=== PATIENT | female | born 1985 | race Caucasian/White ===

== ENCOUNTER → 2016-10-24 | Outpatient (CLI) | payer OTHER ==
[~2016-10-24] VITALS: Ht 167.6 cm; Wt 99.3 kg
[~2016-10-24] MED LIST: ABILIFY10 MG PO; AMITRIPTYLINE H25 M2 PO; AMITRIPTYLINE H50 M3 PO; AMITRIPTYLINE H75 M1 PO; AMITRIPTYLINE100 MG PO; BACLOFEN 10MG T10 MG PO; CATAPRES-TTS 10.1 M2 TD; CATAPRES0.1 MG PO; CATAPRES0.2 M1 PO; CELEBREX 200 M200 M1 PO; CELEBREX 200 M200 MG PO; CELEXA20 MG PO; CYMBALTA60 MG PO; HYDROCODONE-APA1 TA1 PO; IBUPROFEN 800800 M1 PO; LOESTRIN1 EACH PO; LOW-OGESTREL1 EACH PO; LYRICA 50 MG50 MG PO; LYRICA150 MG PO; METFORMIN HCL500 MG PO; MOBIC15 MG PO; NEURONTIN 300300 M1 PO; PERCOCET 10-321 EACH PO; PERCOCET 7.5-31 EACH PO; XANAX1 MG PO; ZANAFLEX4 MG PO; ZOFRAN4 MG PO
--- NOTE | ~2016-10-24 | HPC ---
[facility] [place] [address] PAIN MANAGEMENT CONSULTATION Name: ADRIANNA COTTRELL Room #: REG BOWENJeanine Sauer#: [id number] Admission: 10/24/16 Attend Phys: Tung Goins MD Discharge: Date of : 85 Report #: [id number] THIS REPORT FOR: //name// CC: DERECK Goins She was seen on 10/24/[address] Alirio Goins. FOLLOWUP COMPLAINT: The "burniness" up in the right thigh. FOLLOWUP HISTORY: The patient is a 31-year-old female who has been seen in the pain clinic because of chronic pain involving the right lower extremity. She has pain consistent with reflex sympathetic dystrophy/causalgia. She underwent a lumbar sympathetic block at the last visit. She feels that there was some benefit from this procedure. She does note that she continues to have pain and discomfort in the right thigh area from the knee up. Her right foot continues to be purple and much colder than the left side. Light touch can be uncomfortable. Painful touch is elevated in intensity. She walks with use of a crutches. She was able to get Lyrica as well as Celebrex. Both of these medications she has found benefit from. She was out of them for a while because of lack of insurance coverage. She is quite happy with these medications are now available again. She does feel depressed because of problem. She does lay around more than she did before onset of this problem. She does feel some increased pain and discomfort in right hip area as well as some discomfort in the right groin area. PHYSICAL EXAMINATION: VITAL SIGNS: Blood pressure 150/90, pulse 104, respiratory rate 20, room air saturation 97%. Right foot temperature is 73.3. Left foot temperature is 80.4. EXTREMITIES: Right foot is blue, cold and somewhat clammy. The patient walks with use of her crutches without placing much weight on the affected limb. IMPRESSION: 1. Chronic regional pain syndrome involving the right foot, awaiting right ankle surgery at 2. The patient's insurance does not becomes active for 90 days. 3. Recommend the patient go to physical therapy, consider water aerobics to help increase her mobility as well as increase her activity with that every day world. We would like to thank you for letting us participate in her care. A script for Elavil 100 mg 1 p.o. at bedtime, Lyrica 150 mg 1 p.o. t.i.d., Percocet 10/325 q. 4 hours, Zofran 4 mg p.r.n. nausea. The patient states that her pain is still problematic and sometimes makes her nauseated, [place] [address] PAIN MANAGEMENT CONSULTATION Name: ADRIANNA COTTRELL Room #: REG CLJeanine Sauer#: [id number] Admission: 10/24/16 Attend Phys: Tung Goins MD Discharge: Date of : 85 Report #: [id number] to eat. We would like to thank you for letting us participate in her care. We hope she continues to improve. By: [id number] Tung Goins MD /nt
[2016-10-24 10:02] VITALS: BP 150/90
== END | disposition home or self-care (01) ==
LOC: PAIN 07:02
DX: G90.521 Complex regional pain syndrome I of right lower limb (principal); F17.200 Nicotine dependence, unspecified, uncomplicated

== ENCOUNTER → 2016-11-23 | Outpatient (CLI) | payer OTHER ==
[~2016-11-23] VITALS: Ht 167.6 cm; Wt 96.6 kg
--- NOTE | ~2016-11-23 | HPC ---
[facility] [place] [address] PAIN MANAGEMENT CONSULTATION Name: ADRIANNA COTTRELL Room #: REG KYLE Sauer#: [id number] Admission: 11/23/16 Attend Phys: Tung Goins MD Discharge: Date of : 85 Report #: [id number] THIS REPORT FOR: //name// CC: DERECK Goins DATE OF SERVICE: 11/23/2016 FOLLOWUP COMPLAINT: The Lyrica is helpful and I am glad I was able to get it again. FOLLOWUP HISTORY: The patient is a 31-year-old female who has been seen in the pain clinic because of chronic pain involving her right foot. She suffers from reflux sympathetic dystrophy/chronic regional pain syndrome. She finds that Lyrica continues to be helpful. She continues to have pain and discomfort in her foot, which is quite problematic. It continues to turn colors, remain cold, is hypersensitive to light touch, increased pain from noxious stimuli. PHYSICAL EXAMINATION: The patient is walking with a pair of crutches. She has a small boot like item to help stabilize her ankle. Temperature of her foot is 70.1 degrees on her great toe. It is blue and mottled to around the toes. It did pink up somewhat after she placed her shoe back on, but still remains very cold. She sits leaned on her left buttocks with the right leg held in an extended position. Walks without placing much weight on the ankle. IMPRESSION AND PLAN: 1. Chronic regional pain syndrome involving the right foot. The patient's 's insurance will not be in effect for a month so. She will then undergo evaluation and possible surgery at . 2. The patient has not been able to go to physical therapy yet. She is awaiting confirmation. She also would like to get a swimming pool where she could continue with aerobic water exercises after she has been taught. We will continue with her current medications of Elavil 100 mg at bedtime, Lyrica 150 mg p.o. t.i.d., Percocet 10 mg q. 4 hours p.r.n. pain, Zanaflex 4 mg p.r.n. nausea. The patient does feel some anxiety. She feels that she does develop panic attacks. She is becoming more homebound and has greater anxiety when going out into public. She states that she continues to try to be active following her children in there athletic endeavors. We would like to thank you for letting us participate in her care. We hope she continues to improve. By: [id number] Tung Goins MD /eran
[2016-11-23 10:26] VITALS: BP 149/89
== END | disposition home or self-care (01) ==
LOC: PAIN 06:31
DX: G90.521 Complex regional pain syndrome I of right lower limb (principal); F17.200 Nicotine dependence, unspecified, uncomplicated

== ENCOUNTER → 2016-12-21 | Outpatient (CLI) | payer OTHER ==
[~2016-12-21] VITALS: Ht 167.6 cm; Wt 97.3 kg
[~2016-12-21] MED LIST changes: +PHENTERMINE H37.5 M1 PO
--- NOTE | ~2016-12-21 | HPC ---
[facility] [place] [address] PAIN MANAGEMENT CONSULTATION Name: ADRIANNA COTTRELL Room #: REG BOWENJeanine Sauer#: [id number] Admission: 12/21/16 Attend Phys: Tung Goins MD Discharge: Date of : 85 Report #: [id number] THIS REPORT FOR: //name// CC: DERECK Goins DATE OF SERVICE: 12/21/2016 FOLLOWUP COMPLAINT: "I've had some increased swelling in my legs." FOLLOWUP HISTORY: The patient is a 31-year-old female who has been followed in the pain clinic because of chronic pain involving her right foot. She suffers from reflex sympathetic dystrophy/chronic regional pain syndrome involving the right foot. She notes that it continues to be problematic. She is awaiting surgery. Her 's insurance will come into effect after 90 days of employment. She is planning on having her ankle fused at . It continues to turn colors, is very sensitive to light touch, quite sensitive to noxious stimuli, remains cold and the patient continues to have difficulty ambulating on it. She walks with use of crutches. PHYSICAL EXAMINATION: The patient has crutches. She continues to use a boot-like stabilizer on her ankle. Temperature is 71.4 degrees on her great toe. It is blue and somewhat mottled around her foot and focal parts on her ankle. There are no breakdown areas. IMPRESSION: Chronic regional pain syndrome involving the right foot. The patient's 's insurance goes into effect after 90 days of employment. She is scheduling surgery at when it is possible. The patient has noted some increased weight gain. She has used phentermine 37.5 mg tablets and has noted a number of pounds loss as a result of its use. We have explained to the patient that if she considers surgery, the use of phentermine must be stopped about 2 weeks prior to surgery, given the problems she could have with anesthesia. She still has a script for therapy to note its efficacy. We would like to thank you for letting us participate in her care. We hope she continues to improve. A script for her medications, Zofran 4 mg 1 p.o. q.8 hours, quantity 15; tizanidine 4 mg 1 p.o. t.i.d., quantity 90; baclofen 10 mg 1 p.o. t.i.d., quantity 180; Celebrex 200 mg 1 p.o. daily, quantity 30; Elavil 100 mg 1 p.o. at bedtime; Percocet 10/325 one q.4-6 h, quantity 150; Lyrica 150 mg 1 p.o. t.i.d., quantity 180 have been written. The patient will call us if she has any problems with her medications. [address] [address] PAIN MANAGEMENT CONSULTATION Name: ADRIANNA COTTRELL [facility] #[facility] [id number] Admission: 12/21/16 Attend Phys: Tung Goins MD Discharge: Date of : 85 Report #: [id number] We would like to thank you for letting us participate in her care. We hope she continues to improve. By: [id number] Tugn Goins MD /nt
[2016-12-21 10:16] VITALS: BP 127/83
== END ==
LOC: PAIN 05:44
DX: G89.4 Chronic pain syndrome (principal); F17.210 Nicotine dependence, cigarettes, uncomplicated; I10 Essential (primary) hypertension

== ENCOUNTER → 2017-01-18 | Outpatient (CLI) | payer OTHER ==
[~2017-01-18] VITALS: Ht 167.6 cm; Wt 97.7 kg
--- NOTE | ~2017-01-18 | HPC ---
[facility] [place] [address] PAIN MANAGEMENT CONSULTATION Name: ADRIANNA COTTRELL Room #: REG KYLE Cristiane#: [id number] Admission: 01/18/17 Attend Phys: Tung Goins MD Discharge: Date of : 85 Report #: [id number] THIS REPORT FOR: //name// CC: DERECK Goins DATE OF SERVICE: 01/18/2017 FOLLOWUP COMPLAINT: It is still the same and I am going to have surgery in about April. HISTORY OF PRESENT ILLNESS: The patient is a 31-year-old female who has been treated in the pain clinic because of chronic pain involving her right foot. She suffers from reflex sympathetic dystrophy/chronic regional pain syndrome involving her right foot. She continues to find it problematic. There is continuous swelling. She notes that there is decreased hair growth on the affected side versus the unaffected side. She has noticed that it has become more sensitive. The hypersensitivity area has reached from below her right knee to above the right knee. She states that she continues to try to exercise her knee. Pain is problematic and limits her ability to engage in meaningful exercise and move her right ankle in a significant range of motion. She does wear a brace on that side. PHYSICAL EXAMINATION: Blood pressure 134/84, pulse 106, respiratory rate 18, room air saturation 99%. Height 5 feet 6 inches, weight 167 pounds, BMI is 34. The patient's right foot is dusky. There is no swelling, but the foot is cold and dry to touch. Temperature at the great toe is 71.1. It is significantly colder than the contralateral side. The patient states it is difficult for her to move her foot. She complains of pain and discomfort with light touch in the mid portion of her calf as well as discomfort with pain to light touch to the level of her right knee cap. IMPRESSION AND PLAN: Chronic regional pain syndrome involving the right foot. The patient is scheduled to have surgery at involving the right foot in about April. She feels that her medications are helpful. Pain still remains quite problematic and rates it as a 7/10. Prescription for Zofran, tizanidine, baclofen, Elavil, Celebrex, Lyrica, and Percocet 10 one p.o. 5 tablets per day has been written. The patient will call us if she has any problems with her medications. [address] [address] PAIN MANAGEMENT CONSULTATION Name: ADRIANNA COTTRELL Room #: REG KYLE Sauer#: [id number] Admission: 01/18/17 Attend Phys: Tung Goins MD Discharge: Date of : 85 Report #: [id number] We would like to thank you for letting us participate in her care. We hope she continues to improve. By: [id number] Tung Goins MD /nt
[2017-01-18 10:12] VITALS: BP 134/84
== END ==
LOC: PAIN 06:57
DX: G90.521 Complex regional pain syndrome I of right lower limb (principal); F17.200 Nicotine dependence, unspecified, uncomplicated

== ENCOUNTER → 2017-02-15 | Outpatient (CLI) | payer OTHER ==
[~2017-02-15] VITALS: Ht 167.6 cm; Wt 96.6 kg
[2017-02-15 09:35] VITALS: BP 130/80
== END | disposition home or self-care (01) ==
LOC: PAIN 06:51
DX: G89.4 Chronic pain syndrome (principal); F17.200 Nicotine dependence, unspecified, uncomplicated

== ENCOUNTER → 2017-03-15 | Outpatient (CLI) | payer BC, OTHER ==
[~2017-03-15] VITALS: Ht 167.6 cm; Wt 97.2 kg
--- NOTE | ~2017-03-15 | HPC ---
[facility] [place] [address] PAIN MANAGEMENT CONSULTATION Name: ADRIANNA COTTRELL Room #: REG BOWENJeanine Sauer#: [id number] Admission: 03/15/17 Attend Phys: Tung Goins MD Discharge: Date of : 85 Report #: [id number] THIS REPORT FOR: //name// CC: Dr. Nirav Goins DATE OF SERVICE: 03/15/2017 FOLLOWUP COMPLAINT. "I am going to have my surgery in about 2 weeks." FOLLOWUP HISTORY: The patient is a 32-year-old female who is unfortunately suffered from chronic regional pain syndrome involving the right foot. She continues to have pain and discomfort, which is quite problematic. She has become quite immobile. She and her mother note significant swelling involving her right leg. She continues to wear a brace. She is looking forward to undergoing surgery and being able to continue/get on with her life. She has remained pretty much sedentary over the last month. PHYSICAL EXAMINATION: The patient continues to walk on crutches. Temperature of her foot is 74 degrees of the right great toe. There is modeling of the foot. Areas of the arch of her foot are warm. The toe is quite cold, bluish, and discolored. IMPRESSION: Chronic regional pain syndrome involving the right foot. RECOMMENDATIONS: The patient will continue with her current medical regimen. She will go to at which time she will have her surgery. We encouraged her to see whether a regional anesthesia would be provided in conjunction with a general anesthetic to help lessen the chance worsening of her chronic regional pain syndrome. A script for her medications have been rewritten. We would like to thank you for letting us participate in her care. We hope she continues to improve and does well after the surgery. By: [id number] Tung Goins MD /nt
[2017-03-15 10:31] VITALS: BP 121/84
== END | disposition home or self-care (01) ==
LOC: PAIN 07:18
DX: G90.521 Complex regional pain syndrome I of right lower limb (principal); F17.200 Nicotine dependence, unspecified, uncomplicated

== ENCOUNTER → 2017-04-03 | Outpatient (CLI) | payer BC, OTHER ==
[~2017-04-03] VITALS: Ht 167.6 cm; Wt 99.3 kg
[~2017-04-03] MED LIST changes: +METHADONE HCL 110 M1 PO; +TRILEPTAL150 MG PO
--- NOTE | ~2017-04-03 | HPC ---
[facility] [address] [address] PAIN MANAGEMENT CONSULTATION Name: ADRIANNA COTTRELL Room #: REG KYLE Dasia.#: [id number] Admission: 04/03/17 Attend Phys: Tung Goins MD Discharge: Date of : 85 Report #: [id number] THIS REPORT FOR: //name// CC: Dr. Nirav Hdz MD DATE OF SERVICE: 04/03/2017 FOLLOWUP HISTORY: "The doctor at says he cannot do anything for me and if I would have come to him earlier, he would have amputated my leg." FOLLOWUP HISTORY: The patient is a 32-year-old female who has been referred to the Pain Clinic. She has a history of right ankle pain. She had been having pain since 1997. She had been experiencing burning, shooting, aching, crushing, pulling, gnawing, pounding and sharp, tender discomfort. She is rating her pain about 8-9. She has undergone right ligamentum repair of her ankle in 1997. She also had a repair in 1998. A tendon repair was performed in 05/2015. She has been seen in the Pain Clinic and treated for complex regional pain syndrome. She underwent a lumbar sympathetic block and noted some slight improvement for a short amount of time. At this point, her pain is becoming more problematic. She is unable to engage in any significant activity of daily living. She stays in the bedtime most of the time. She has difficulty walking and is unable to walk on her right foot/ankle. She has been using crutches. We have tried a number of medical regimens using opioid medications, anti-seizure medications, tricyclic antidepressant medications, muscle spasms medications with some small amount of benefit. She was scheduled to see a surgeon at . At their meeting he indicating that her RSD symptoms were problematic. They have progressed past the point that he feels that any surgery that he could provide would be of any significant benefit. He had considered amputation of her foot. She is having pain, which continues to migrate up her leg now to the level slightly above her knee. PHYSICAL EXAMINATION: Blood pressure 115/84, pulse 104, respiratory rate 16, room air saturation 98%. Height 5 feet 6 inches, weight 219 pounds. She rates her pain as a 9/10. The foot is modelled, temperature of the right foot is 71 degrees, it is cold and dry, hair pattern is ____ with the contralateral side. She says there has been some changes in the nail bed. She has a wrap on her right foot. She has shoes which are cut out on the top because of the pain and discomfort. Hypersensitivity, allodynia involving the right foot. IMPRESSION: 1. Chronic regional pain syndrome involving the right foot, treated as [facility] [address] [place] [address] PAIN MANAGEMENT CONSULTATION Name: ADRIANNA COTTRELL Room #: REG CLJeanine Sauer#: [id number] Admission: 04/03/17 Attend Phys: Tung Goins MD Discharge: Date of : 85 Report #: [id number] described above. 2. Polycystic ovarian disease. 3. History of tobacco use. RECOMMENDATION: The patient has undergone appropriate treatment with medications and procedures for chronic regional pain syndrome involving her right foot. We have explained that an option which has been helpful for folks with chronic regional pain syndrome, has been use of a spinal cord stimulation. We have explained that patient would need to undergo the preliminary steps for placement of a stimulator. This would include psychological evaluation. The patient will return to the Pain Clinic for evaluation. She has been given information regarding the dorsal column/spinal cord stimulation procedure. We would like to thank you for letting us participate in her care. We hope she continues to improve. By: [id number] Tung Goins MD /
[2017-04-03 10:11] VITALS: BP 115/84
== END | disposition home or self-care (01) ==
LOC: PAIN 07:23
DX: G90.521 Complex regional pain syndrome I of right lower limb (principal); E28.2 Polycystic ovarian syndrome; F17.200 Nicotine dependence, unspecified, uncomplicated

== ENCOUNTER → 2017-04-12 | Outpatient (CLI) | payer BC, OTHER ==
[~2017-04-12] VITALS: Ht 167.6 cm; Wt 99.2 kg
--- NOTE | ~2017-04-12 | HPC ---
[facility] [place] [address] PAIN MANAGEMENT CONSULTATION Name: ADRIANNA COTTRELL Room #: REG BOWENJeanine Sauer#: [id number] Admission: 04/12/17 Attend Phys: Tung Goins MD Discharge: Date of : 85 Report #: [id number] THIS REPORT FOR: //name// CC: DERECK Goins DATE OF SERVICE: 04/12/2017 FOLLOWUP COMPLAINT: "I think the methadone was helpful, but I developed a rash." FOLLOWUP HISTORY: The patient is a 32-year-old female who has been followed in the pain clinic because of chronic regional pain syndrome involving the right foot. She was provided methadone at the last visit. She spoke with Dr. Juanjose Martínez regarding possible dorsal column stimulation. She noticed after a day or so that she was developing a rash. This was noted on her forearm, neck and other parts of her body. She assumes that this was secondary to use of the methadone. That is the only new medication, which she has taken. PHYSICAL EXAMINATION: Blood pressure 125/87, pulse 120, respiratory rate 20, room air O2 saturation is 100%. Height 5 feet 6 inches, weight 218 pounds, BMI is 35. The patient has a mottled look to her right foot, which continues to be hypersensitive to light touch, notes some ____ changes. Has a bluish color. Continues to have hypersensitivity to touch in the right leg as well as increasing discomfort up in the knee area. She notes some increased swelling on the dorsum of her foot. She denies any trauma to this area. Palpation of this area indicates some swelling. She denies any trauma which might have caused the fracture. IMPRESSION: 1. Chronic regional pain syndrome involving the right foot. 2. The patient has ____ the information regarding a dorsal column stimulator. RECOMMENDATIONS: We discussed treatment options with the patient. She has had some reactions with Medrol Dosepak in the past. She feels that things are improving somewhat and less problematic than yesterday. She did experience some sweating with use of the methadone. We will try Trileptal. She will call us if she has any problems with the medications. We would like to thank you for letting us to participate in her care. We hope she continues to improve. By: [id number] Tung Goins MD /
[2017-04-12 10:08] VITALS: BP 125/87
== END ==
LOC: PAIN 06:47
DX: M79.671 Pain in right foot (principal)

== ENCOUNTER → 2017-05-01 | Outpatient (CLI) | payer BC, OTHER ==
[~2017-05-01] VITALS: Ht 167.6 cm; Wt 99.6 kg
--- NOTE | ~2017-05-01 | HPC ---
[facility] [place] [address] PAIN MANAGEMENT CONSULTATION Name: ADRIANNA COTTRELL Room #: REG KYLE Cristiane#: [id number] Admission: 05/01/17 Attend Phys: Tung Goins MD Discharge: Date of : 85 Report #: [id number] THIS REPORT FOR: //name// CC: DERECK Goins DATE OF SERVICE: 05/01/2017 FOLLOWUP COMPLAINT: Continued pain in the right leg with increasing pain in the right leg. FOLLOWUP HISTORY: The patient is a 32-year-old female who has been followed in the Pain Clinic because of chronic pain. She suffers from chronic regional pain syndrome. She notes that her pain continues to be problematic. She feels that her pain level has continued to escalate. She rates it as an 8/10. Light touch is very painful. Noxious stimuli is significantly more painful than one would expect. She continues to note changes of color in her foot. Her foot is cold. She is dreading the onset of winter knowing that her pain level will probably escalate. Pain is worsened by sitting, standing and walking. She still feels her foot is somewhat numb. PHYSICAL EXAMINATION: VITAL SIGNS: Blood pressure 140/91, heart rate 118, respiratory rate 16, room air saturation is 99%. Height 5 feet 6 inches, weight 219 pounds, BMI is 35. MUSCULOSKELETAL: The patient continues to have pain and discomfort with allodynia and hyperesthesia of the right lower foot. Temperature is 74 degrees Fahrenheit. There is a bluish tinge and color to the foot. It feels very cold to touch as well. The patient pulls away from light touch in her foot on the dorsum, ankle as well as now she states that the pain has increased and is more uncomfortable at about mid thigh. She continues to research and consider the possibility of a dorsal column stimulator to help with her pain condition. She finds that her medications are still ineffective. She noted that the methadone was helpful, but had the side effects. She would like to increase her Percocet to six tablets per day. IMPRESSION: 1. Chronic regional pain syndrome involving the right foot with increasing discomfort. 2. Consideration has been given for possibility of a dorsal column stimulator. RECOMMENDATIONS: We will increase the patient's Percocet to 10 mg 1 p.o. t.i.d. We have explained the opioid medications have a limited role in pain control. Continuing to escalate the dose probably would not be as efficacious. She will follow up in the future with her decision regarding the dorsal column stimulator. We would like to thank you for letting us participate in her care. [address] [address] PAIN MANAGEMENT CONSULTATION Name: ADRIANNA COTTRELL Room #: REG KYLE Sauer#: [id number] Admission: 05/01/17 Attend Phys: Tung Goins MD Discharge: Date of : 85 Report #: [id number] We hope she continues to improve. The patient will try use of a ____ to desensitize her right foot. We have explained the use of a ____ to cover the affected area and concentrate on moving her left foot. It is thought that this can help some regain motion in the affected limb. By: [id number] Tung Goins MD /EDMOND
[2017-05-01 10:14] VITALS: BP 140/91
== END | disposition home or self-care (01) ==
LOC: PAIN 07:18
DX: G89.4 Chronic pain syndrome (principal); Z68.35 Body mass index [BMI] 35.0-35.9, adult; F17.200 Nicotine dependence, unspecified, uncomplicated

== ENCOUNTER → 2017-07-24 | Outpatient (CLI) | payer BC, OTHER ==
[~2017-07-24] VITALS: Ht 167.6 cm; Wt 101.3 kg
[~2017-07-24] MED LIST changes: +AMITRIPTYLINE150 MG PO
--- NOTE | ~2017-07-24 | HPC ---
[facility] [place] [address] PAIN MANAGEMENT CONSULTATION Name: ADRIANNA COTTRELL Room #: REG KYLE Cristiane#: [id number] Admission: 07/24/17 Attend Phys: Tung Goins MD Discharge: Date of : 85 Report #: [id number] THIS REPORT FOR: //name// CC: DERECK Queen DATE OF SERVICE: 07/24/2017 FOLLOWUP COMPLAINT: "The pain continues to get worse and it continued to creep up my leg. I am in bed most of the time." FOLLOWUP HISTORY: The patient is a 32-year-old female who has been followed in the pain clinic. As you recall, she has significant pain, which has been quite problematic. It involves her right ankle. She continues to have chronic regional pain syndrome, which continues to worsen. She is experiencing pain that is radiating up into her leg. It initially started in the ankle and has progressed to about the right buttock. She notes that it is hypersensitive to light touch. There is allodynia and hyperesthesia in this area. Finds her foot continues to be cold, mottled, and painful. Tries not to wear a shoe or put pressure on this because of that pain. Walks with crutches. She has continued to take her medications, but has not found any that have been able to control her pain to a reasonable degree. PHYSICAL EXAMINATION: The patient is alert. She is sitting in the chair with her right foot extended and leaning somewhat back in the chair. There is a bluish color in the toe area. She states it is uncomfortable to move her ankle and notes some discomfort with movement of her ankle. She complains of hyperesthesia and allodynia to the level of her right thigh, feels like it is going up into the buttocks area. IMPRESSION: 1. Chronic regional pain syndrome involving the right foot with progression of pain and discomfort into the right leg and into the buttocks area. 2. The patient is unable to work secondary to the severity of the pain, which she is experiencing and her inability to place any appreciable weight on her foot. 3. 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 RECOMMENDATIONS: We discussed treatment options with the patient. At this juncture, a significant number of medications have been tried and maxed out. Other medications have been problematic. Today, she has returned to the pain clinic for a repeat lumbar sympathetic block. She and her sister are present. She elects to proceed. The right foot temperature prior to the procedure is 63.9. [address] [address] PAIN MANAGEMENT CONSULTATION Name: ADRIANNA COTTRELL Room #: REG [facility]#: [id number] Admission: 07/24/17 Attend Phys: Tung Goins MD Discharge: Date of : 85 Report #: [id number] PROCEDURE NOTE: The patient was helped to the table. After appropriate placement using a 20-gauge Chiba needle, a skin wheal was placed. The 20-gauge needle was then advanced into the anterior border of the L1 vertebral body. It was then advanced in the anterior portion of the vertebral body. After appropriate placement, 3 mL contrast media was injected. Appropriate placement was noted. A total of 20 mg of 0.25% bupivacaine was injected. The patient's fluoroscopy time was 33 seconds. We noted that the temperature of her foot went from 63.9 to 71 degrees to 72 degrees. It later moved to 73.5 degrees. The patient said she could not appreciate any significant change in her pain. Her foot did appear somewhat more pink. She remained in the pain clinic for an appropriate amount of time. She will follow up in a university setting near her. She states that she lives close to [place]. We would recommend that she seek treatment in the [facility]. We had discussed the possibility of a dorsal column stimulator. She is still thinking over that option. We would like to thank you for letting us participate in her care. We hope she continues to improve. By: [id number] Tung Goins MD /EDMOND
[2017-07-24 08:39] VITALS: BP 143/74
== END | disposition home or self-care (01) ==
LOC: PAIN 06:50
DX: G90.521 Complex regional pain syndrome I of right lower limb (principal); F32.89 Other specified depressive episodes; F17.200 Nicotine dependence, unspecified, uncomplicated; Z91.040 Latex allergy status; Z88.8 Allergy status to other drugs, medicaments and biological substances; Z79.891 Long term (current) use of opiate analgesic; Z79.899 Other long term (current) drug therapy

== ENCOUNTER → 2017-09-11 | Outpatient (CLI) | payer BC, OTHER ==
[~2017-09-11] VITALS: Ht 167.6 cm; Wt 101.2 kg
[~2017-09-11] MED LIST changes: +ABILIFY 2 MG2 M1 PO; +LYRICA 75 MG CA75 MG PO; +OXYCODONE HCL10 MG PO; +OXYCODONE-ACET1 EAC2 PO
--- NOTE | ~2017-09-11 | HPC ---
[facility] [place] [address] PAIN MANAGEMENT CONSULTATION Name: ADRIANNA COTTRELL Room #: REG KYLE Sauer#: [id number] Admission: 09/11/17 Attend Phys: Tung Goins MD Discharge: Date of : 85 Report #: [id number] THIS REPORT FOR: //name// CC: DERECK Goins DATE OF SERVICE: 09/11/2017 FOLLOWUP COMPLAINT: "I am thinking about moving closer to home so that they can be of help." FOLLOWUP HISTORY: The patient is a 32-year-old female, who has been followed in the pain clinic because of chronic pain involving the right lower extremity. She continues to have pain and discomfort, which is problematic. She has noticed a worsening of her pain. It feels like it has climbed up and progressed from the right side to the left side. She feels that her medications are still helpful. She has decided to move closer to her family, which is about [address], she is able to get more help and they can provide more support. She continues to notice allodynia and hyperesthesia. Walks with an antalgic gait and with a crutch. She has difficulty wearing her shoe. Notes some worsening of pain and it seems to be crossing over into the left side. At this juncture, she is still considering a dorsal column stimulator. At this juncture, she does not feel that it is the right time. She would like to wait a little while. She does have a sister, who has had a stimulator in place. There is some question as to the efficacy her sister has been receiving. This has left some concern in her mind and that of her 's. She has had some discomfort in her left arm as well. ALLERGIES: LATEX, METHADONE, CATAPRES, AND MEDROL DOSEPAK. CURRENT MEDICATIONS: Phentermine 37.5 mg daily; Abilify 2 mg; Lyrica 75 mg, 1 in the a.m., 2 in the afternoon, and 2 at bedtime; oxycodone 10/325 mg; tizanidine 4 mg p.o. t.i.d.; Lyrica 150 mg t.i.d.; Zofran 4 mg q.8 hours p.r.n. Celebrex 200 mg; baclofen 10 mg t.i.d.; amitriptyline 150 mg at bedtime; Xanax 1 mg t.i.d.; estradiol daily; Cymbalta 60 mg; metformin 500 mg b.i.d. PAIN CLINIC ASSESSMENT: 1. History of osteoarthritis, had some arthritic changes in her right foot, is not being treated for rheumatoid arthritis. 2. Height 5 feet 6 inches, weight 223 pounds, and BMI is 36. 3. Vital signs: Blood pressure 159/97, pulse 134, respiratory rate 16, and room air saturation 98%. 4. Pain intensity 10. 5. Fall risk. The patient fell last week. She does walk and use crutches. She is trying to be more mindful. 6. Blood thinner. The patient [place] [address] PAIN MANAGEMENT CONSULTATION Name: ADRIANNA COTTRELL Room #: REG [facility].#: [id number] Admission: 09/11/17 Attend Phys: Tung Goins MD Discharge: Date of : 85 Report #: [id number] 7. History of hypertension. The patient is not being treated for hypertension. 8. Opioid therapy. The patient has a signed contract with the pain clinic. 9. Risk assessment tool 09/12, which is low in regard to use of opioids. 10. Functional assessment tool. 11. Recreational drug use. The patient has never used recreational drugs. 12. Tobacco: The patient is a current smoker. 13. Alcohol: The patient denies use of alcohol. PHYSICAL EXAMINATION: GENERAL: The patient is a well-developed female. Appearance: Appears her stated age. Orientation: The patient is alert and oriented x 3. Affect: The patient has a somewhat flat affect given her chronicity and long-term pain. HEENT: Head is normocephalic, atraumatic. Extraocular eye muscles intact. Hearing is within normal limits. Nasal areas are clear without congestion. Buccal membranes are moist. NECK: Without adenopathy. LUNGS: Clear to auscultation. HEART: Regular rate. ABDOMEN: Protuberant. MUSCULOSKELETAL: Alignment: The patient has normal alignment without significant scoliosis, kyphosis, or lordosis. The patient walks with an antalgic gait and uses a crutch. Back: The patient has pain in the back area. Complains of pain in the right foot. The foot is a bluish color. It is cold, temperature is 76 degrees. Does have a slight brace on her foot. Notes allodynia and hyperesthesia. No sweating is noted. The patient is complaining of pain and discomfort, which is similar to that in the right leg, which is crossing over now to the left leg and in the upper portion of her thigh. IMPRESSION: 1. Chronic regional pain syndrome involving the right foot with progression of pain and discomfort in the right leg and moving to the left lower extremity. 2. Inability to work secondary to severity of her pain. 3. 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 RECOMMENDATIONS: We discussed the treatment options with the patient. Possibility of a spinal cord stimulator has been approached. The patient feels at this juncture it is not quite the time to do it. She is going to move closer to home for more moral support. She will continue with her current medications. She will call us if she has any problems. She will decrease use of tobacco. We would like to thank you for letting us to participate in her care. We hope she continues to improve. <ELECTRONICALLY SIGNED> By: Tung Goins MD 10/16/17 [id number] Tung Goins MD /nt
[2017-09-11 10:26] VITALS: BP 159/97
== END ==
LOC: PAIN 07:04
DX: G89.29 Other chronic pain (principal); M79.604 Pain in right leg

== ENCOUNTER → 2017-11-06 | Outpatient (CLI) | payer BC, OTHER ==
[~2017-11-06] VITALS: Ht 167.6 cm; Wt 102.7 kg
[~2017-11-06] MED LIST changes: -OXYCODONE-ACET1 EAC2 PO
--- NOTE | ~2017-11-06 | HPC ---
[facility] [address] [place] [address] PAIN MANAGEMENT CONSULTATION Name: ADRIANNA COTTRELL Room #: REG KYLE Sauer#: [id number] Admission: 11/06/17 Attend Phys: Tung Goins MD Discharge: Date of : 85 Report #: [id number] THIS REPORT FOR: //name// CC: DERECK Queen DATE OF SERVICE: 11/06/2017 FOLLOWUP COMPLAINT: Continues to have pain that is creeping up my leg and now it is in the middle portion of my back. I went to the Emergency Room because the pain was really bad. FOLLOWUP HISTORY: The patient is a 32-year-old female, who has been followed in the pain clinic because of pain consistent with complex regional pain syndrome. Continues to have pain and discomfort, which is quite problematic. She notes that her pain had gotten worse over the last few weeks. She did have episode, where she went to the Emergency Room. She was given Toradol. She explained to them that she was on the pain contract and no opioid medications were given. She has noticed that her pain is increased at 6 tablets of hydrocodone per day, we had cut down to four tablets per day. She feels that at this juncture the pain is still problematic and that she would like to increase her opioid medication another knots. She and her family have discussed the implementation of a dorsal spinal cord stimulating device. She has another family member, who has one. She is not sure how much benefit that has been for that individual. At this juncture, she has talked to a number of family members and feels that she should probably hold off for implantation at this juncture. She would like to continue at her current levels of gabapentin, but feels that her hydrocodone medication would be better in controlling her pain if she increased to 5 tablets per day. Hopefully, this will keep her out of the Emergency Room. She continues to walk with a crutch. She has noticed her foot continues to be quite painful. It turns color and causes worsening of pain at certain times. The weather pattern has changed with cold days and hot days and she has noticed a worsening of her pain in conjunction with fluctuation in the weather. ALLERGIES: LATEX SENSITIVITY, ADHESIVE TAPES, AND METHADONE CAUSE SOME ITCHING. MEDICATIONS: Current medications oxycodone tablets 10 mg, 4 tablets daily, tizanidine 4 mg t.i.d., Lyrica 150 mg daily, Zofran 4 tablets q.8 hours p.r.n., baclofen 10 mg t.i.d., amitriptyline 150 mg at bedtime, Xanax 1 mg t.i.d., phentermine 37.5 mg tablets, Abilify 2 mg, gabapentin 75 mg capsules, one in a.m., two in afternoon, and two at bedtime, norgestrel, estradiol, Cymbalta 60 mg, and Glucophage 500 mg b.i.d. [address] [address] PAIN MANAGEMENT CONSULTATION Name: ADRIANNA COTTERLL Room #: REG KYLE Sauer#: [id number] Admission: 11/06/17 Attend Phys: Tung Goins MD Discharge: Date of : 85 Report #: [id number] PAIN CLINIC ASSESSMENT: 1. The patient is not being treated for osteoarthritis or rheumatoid arthritis. 2. Pain intensity is 9/10. 3. Fall risk: The patient did fall last week at home. 4. Blood thinner. The patient is not on a blood thinner. 5. Hypertension. The patient is not treated for hypertension. 6. Opioid therapy greater than 6 weeks. The patient is on opioid therapy and gets her medication from one source. 7. Risk assessment tool: 08/12, which is low for opioid use. 8. Function assessment: 58/70, which shows high impact on activities of daily living. 9. Recreational drug use. 10. Tobacco. Currently, is a smoker on a daily basis. Smokes three cigarettes per day. 11. Alcohol. Denies use of a frequent alcohol use. PHYSICAL EXAMINATION: GENERAL: The patient is a well-developed and well-nourished white female. Appears her stated age. She is alert and oriented x 3. Affect is somewhat depressed. Speech is fluent. Height 5 feet 6 inches, weight 226 pounds, and BMI is 36. VITAL SIGNS: Blood pressure 120/77, pulse 111, respiratory rate 16, and room air saturation 97%. HEENT: Normocephalic and atraumatic. Extraocular eye muscles intact. Conjunctivae are clear. Hearing is within normal limits. Mucous membranes are moist. NECK: Without adenopathy. Good range of motion. HEART: Regular rate. ABDOMEN: Protuberant. MUSCULOSKELETAL: Without significant scoliosis, kyphosis, or lordosis. The patient complains of pain and discomfort down into the affected right ankle. The patient sits with her right leg extended. Does have a brace on the leg. The skin color is mottled and cold. Slow capillary refill. Light touch causes evidence of hyperesthesia. Pressure in the area causes withdrawal and complains of allodynia. The patient notes that the pain and discomfort, which initially started out in the right foot and in the ankle has progressed from her right foot up to the mid calf, knee area, mid thigh, to the hip and notes it in the mid portion of her back. IMPRESSION: 1. Chronic regional pain syndrome involving the right foot. 2. Inability to work secondary to the chronic pain and inability to walk and put weight on her foot and engage in any meaningful activities. 3. 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 RECOMMENDATIONS: We discussed treatment options with the patient. At this [facility] [address] [place] [address] PAIN MANAGEMENT CONSULTATION Name: ADRIANNA COTTRELL Room #: REG BOWENJeanine Sauer#: [id number] Admission: 11/06/17 Attend Phys: Tung Goins MD Discharge: Date of : 85 Report #: [id number] juncture, we will increase her oxycodone from 4 tablets per day to 5 tablets. We had a long talk with the patient and her mother. We explained that oftentimes use of opioid medications can result in tolerance. We explained to her that more than likely she will experience some improvement now that we have increased her opioid medication because the receptors have downgraded somewhat, but to be aware that this may not be long lived. She is still considering the possibility of a dorsal column stimulator. She is having some questions in her mind and has talked with family members as to when appropriate time would be to progress with this. At this juncture, she does not feel it is the time and we will continue with her current medical regimen. She will call us when she feels it is appropriate. She also has been given a script to renew her medications of oxycodone 150 mg 1 p.o. 5 times a day, amitriptyline 150 mg at bedtime, baclofen 10 mg t.i.d., Xanax 1 mg t.i.d., and Zofran 4 mg q.8 hours p.r.n. We would like to thank you for letting us to participate in her care. We hope she continues to improve. By: [id number] Tung Goins MD /EDMOND
[2017-11-06 09:52] VITALS: BP 120/77
== END ==
LOC: PAIN 06:57
DX: G90.521 Complex regional pain syndrome I of right lower limb (principal); F32.9 Major depressive disorder, single episode, unspecified; Z91.040 Latex allergy status; Z88.5 Allergy status to narcotic agent

== ENCOUNTER → 2018-01-01 | Outpatient (CLI) | payer BC, OTHER ==
[~2018-01-01] VITALS: Ht 167.6 cm; Wt 98.4 kg
--- NOTE | ~2018-01-01 | HPC ---
[facility] [address] [place] [address] PAIN MANAGEMENT CONSULTATION Name: ADRIANNA COTTRELL Room #: REG BOWENJeanine Sauer#: [id number] Admission: 01/01/18 Attend Phys: Tung Goins MD Discharge: Date of : 85 Report #: [id number] THIS REPORT FOR: //name// CC: DERECK Goins DATE OF SERVICE: 01/01/2018 FOLLOWUP COMPLAINT: I was told that I am not a candidate for the dorsal column stimulator. FOLLOWUP HISTORY: The patient is a 32-year-old female who has been followed in the pain clinic because of chronic pain associated with complex regional pain syndrome. She continues to find this pain is problematic. Pain continues to be limiting. She is unable to engage in partake in activities at the level that she would like to. She is trying to be more active. She is trying to be more accepting of her situation and active. She feels that her medications are helpful. She continues to have pain and discomfort in the right foot. It remains code blue and painful. Pain continues up her ankle, calf, knee, thigh, buttocks, and lateral buttocks on the right. The patient had discussed the spinal cord stimulator with her sister. Her sister has one and it was working for a period of time and now it is no longer effective. Her sister is contemplating having it removed. The patient's remains gainfully employed. He works and then returns home. He can be gone for as long as 3 weeks. She feels that her medications are helpful. Her insurance is covering her medications. She has some disability. ALLERGIES: LATEX SENSITIVITY, ADHESIVE TAPE, AND METHADONE CAUSE SOME ITCHING IN THE PAST. MEDICATIONS: Oxycodone 10 mg, 4 tablets daily; tizanidine 4 mg t.i.d., Lyrica 150 mg daily, Zofran 4 tablets q.8 hours p.r.n., baclofen 10 mg t.i.d., amitriptyline 150 mg at bedtime, Xanax 1 mg t.i.d., phentermine 37.5 mg, Abilify 2 mg, norgestrel, estradiol, Cymbalta 60 mg, and Glucophage 50 mg t.i.d. PAIN CLINIC ASSESSMENT: 1. The patient is not being treated for osteoarthritis, but has some arthritic changes involving her right ankle. 2. Pain intensity 02/11. 3. Fall risk. The patient has not fallen. She does walk with use of crutches. 4. Blood thinner. The patient is not on a blood thinning medication. 5. History of hypertension. The patient is not being treated for hypertension. 6. Opioid therapy greater than 6 weeks. The patient is on an opioid contract with the pain clinic and gets her medication from one source. 7. Risk assessment tool: Low risk 08/07. 8. Functional assessment tool 58/70 showing significant impairment in [address] [address] PAIN MANAGEMENT CONSULTATION Name: ADRIANNA COTTRELL Room #: REG KYLE Sauer#: [id number] Admission: 01/01/18 Attend Phys: Tung Goins MD Discharge: Date of : 85 Report #: [id number] activities of daily living secondary to the pain. 9. Recreational drug use. The patient denies use of recreational drugs. 10. Smoker. The patient continues to be an every day smoker. 11. Alcohol: The patient denies use of frequent alcoholic beverages. PHYSICAL EXAMINATION: VITAL SIGNS: Blood pressure 145/78, pulse 95, respiratory rate 16, and room air saturation 99%. GENERAL: The patient is a well-developed white female. She appears her stated age. She is alert and oriented. Speech is fluent. Height 5 feet 6 inches, weight 217 pounds, and BMI is 35. HEENT: Normocephalic, atraumatic. Extraocular eye muscles intact. Conjunctivae are nonicteric. Hearing is within normal limits. Mucous membranes are moist. NECK: Without adenopathy. Good range of motion. HEART: Regular rate. S1, S2. ABDOMEN: Protuberant. MUSCULOSKELETAL: Without significant scoliosis, kyphosis, or lordosis. The patient has pain and discomfort in the right ankle. She still complains of a cold sensation in her foot. She notes that it continues to be somewhat bluish in tinge on occasion. She finds that the brace on her foot continues to be helpful. She notes some mottling of the skin. Capillary refill remains low. She still notes hyperesthesia involving the right lower extremity and particularly in the area of her ankle and foot. Withdrawals from allodynia. She notes some pain has progressed from her ankle over the number of months to that in the lower portion of her back. IMPRESSION: 1. Chronic regional pain syndrome involving the right foot - not significantly changed since last visit. 2. Inability to work secondary to chronic pain, inability to walk and put weight on her foot. The patient is receiving some disability. 3. 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 RECOMMENDATIONS: We discussed treatment options with the patient. At this juncture, we will continue with her current medications. She has had evaluation by her psychologist. Overall, her psychologist feels that she is probably not a good candidate at this juncture for a dorsal column stimulator given her mental feelings about it. She has a sister who has had one place. It is not working very well at this juncture and her sister is contemplating having hers' removed. We will continue with the opioid medications. The patient is aware that [facility] has certain limitations on use of opioid medications. The patient also has continued to try using a mirror and moving the contralateral side to hopefully stimulate/modulate the feelings and stimulation on the affected side. The patient states she does this with her son. She continues to try and stay active. She would like her medications renewed. We have rewritten her [address] [address] PAIN MANAGEMENT CONSULTATION Name: ADRIANNA COTTRELL Room #: REG Jeanine Forman.#: [id number] Admission: 01/01/18 Attend Phys: Tung Goins MD Discharge: Date of : 85 Report #: [id number] medications. A script for all of her medications Oxycodone, amitriptyline, baclofen, Xanax, and Zofran have been provided. The patient will follow up in the near future. We would like to thank you for letting us to participate in her care. We hope she continues to improve. By: [id number] Tung Goins MD /EDMOND
[2018-01-01 10:15] VITALS: BP 145/78
== END ==
LOC: PAIN 06:27
DX: G90.521 Complex regional pain syndrome I of right lower limb (principal); F32.9 Major depressive disorder, single episode, unspecified; Z91.040 Latex allergy status; Z88.5 Allergy status to narcotic agent

== ENCOUNTER → 2018-02-26 | Outpatient (CLI) | payer BC, OTHER ==
[~2018-02-26] VITALS: Ht 167.6 cm; Wt 96.3 kg
[2018-02-26 11:33] VITALS: BP 141/65
== END ==
LOC: PAIN 06:27
DX: Z09 Encounter for follow-up examination after completed treatment for conditions other than malignant neoplasm (principal); F11.20 Opioid dependence, uncomplicated; F17.210 Nicotine dependence, cigarettes, uncomplicated

== ENCOUNTER → 2018-06-18 | Outpatient (CLI) | payer BC, OTHER ==
[~2018-06-18] VITALS: Ht 167.6 cm; Wt 99.7 kg
[~2018-06-18] MED LIST changes: +OXYCODONE-ACET1 EAC2 PO; +ULTRAM 50MG TAB50 MG PO
--- NOTE | ~2018-06-18 | HPC ---
[facility] [place] [address] [place] [address] PAIN MANAGEMENT CONSULTATION Name: ADRIANNA COTTRELL Room #: REG KYLE M.Marilyn.#: [id number] Admission: 06/18/18 Attend Phys: Sherri Medina Discharge: Date of : 85 Report #: [id number] THIS REPORT FOR: //name// CC: Sherri Goins MD Physician staff DATE OF SERVICE: 06/18/2018 CHIEF COMPLAINT: Here for pain management control of her complex regional pain syndrome. HISTORY OF PRESENT ILLNESS: The patient returns today for a followup in the pain clinic for her pain problem of complex regional pain syndrome in her right lower extremity. She is here with her today. She tells me that her pain medicine is working fairly well in controlling her pain, especially since Dr. Goins switched her from oxycodone IR to oxycodone . Dr. Hutson also started her on some tramadol and did speak with Dr. Goins regarding this and she finds it is very helpful for her sleep. She rates her pain score a 10/10 today, burning, stabbing, sharp pain in her right leg, right foot. Does have crutches with her today. Her pain is worse when she is standing and walking; alleviates her pain with her medication and elevating her foot. She did tell me that she did have a seizure on . She does suffer from PCOS and does take metformin for that and sometimes, her blood sugar does go low and she took some sugar and checked her blood sugar and that was significantly low, though she cannot remember what the number was, but it was a onetime episode with no medical treatment given. ALLERGIES: LATEX, ADHESIVE, TAPE, CLONIDINE, AND METHADONE. CURRENT LIST OF MEDICATIONS: Tramadol 50 mg 2 tablets at bedtime, tizanidine 4 mg tablets 3 times a day, Lyrica 150 mg 3 times a day, oxycodone 10/325 five times a day, Zofran 4 mg every 8 hours as needed, baclofen 10 mg 3 times a day, amitriptyline 150 mg at bedtime, Xanax 1 mg 3 times a day, phentermine 37.5 mg daily, Abilify 2 mg daily, control pill daily, Cymbalta 60 mg daily and metformin 1000 mg twice a day. PQRS: 1. The patient is not being treated for osteoarthritis, but has some arthritic changes in her right ankle. She does not have rheumatoid arthritis. 2. Height is 5 feet 6 inches, weight is 219, BMI is 35.5. 3. VITAL SIGNS: Blood pressure 119/80, pulse is 117, respirations 18, oxygen level is 97%. 4. Pain score is 10/10. [address] [address] PAIN MANAGEMENT CONSULTATION Name: ADRIANNA COTTRELL Room #: REG CLI Cristiane#: [id number] Admission: 06/18/18 Attend Phys: Sherri Medina Discharge: Date of : 85 Report #: [id number] 5. Fall risk. She denies dizziness. Does need help walking with crutches and has fallen in the last 3 months. 6. The patient is not on any blood thinners. Denies hypertension. 7. She has a history of opioid therapy greater than 6 weeks and has opioid signed contract on the chart. 8. Her risk assessment is low and her functional assessment tool is 58/70. 9. Recreational drug use, she denies. She is a current smoker and does not drink alcohol. We did check the [place] and [place] PDMP on her and found that she is filling her oxycodone appropriately from Dr. Jatinder Goins. She did refill her tramadol from Dr. Hutson, which he did call and talked with Dr. Goins about before she did fill that medication. PHYSICAL EXAMINATION: GENERAL: This patient is a well-developed, well-nourished white female. She appears her stated age. She is alert and orientated. Affect is appropriate. She is here today with her . HEENT: Normocephalic, atraumatic. Extraocular eye muscles are intact. Sclerae are nonicteric. Mucous membranes are moist. MUSCULOSKELETAL: Without significant scoliosis, kyphosis or lordosis. Does have pain and discomfort in her right ankle, right lower extremity. There is some discoloration noted. Complains of sensitivity to touch and allodynia. She continues to tell us that her foot is cold. Brace is on her right foot today. IMPRESSION: 1. Complex regional pain syndrome involving the right foot. 2. Inability to work secondary to chronic pain. 3. Complex medical management secondary to reflex sympathetic dystrophy. 4. 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 We reviewed the fact that opiate medications are being used to provide analgesia adequate to support activities of daily living, not attempting to achieve a specific pain score on the 0-10 Visual Analog Scale. The current opiate medications are providing sufficient analgesia to allow the patient to participate in activities of daily living. The patient is not exhibiting any aberrant behavior suggestive of drug diversion. The patient is not having any adverse reactions to medications. The patient is not suffering from daytime somnolence or mental acuity changes. The patient is managing opiate-induced constipation with appropriate ybcu-uby-drjzqic agents and dietary considerations. The patient was counseled on concern for caution with operating a motor vehicle while using opiate medications. A physical exam was performed and the patient's functional status was evaluated. All patients with back pain were advised against the bed rest greater than 4 days and were advised to return to normal activities. Pain score assessment was [facility] [place] [place] [address] [place] [address] PAIN MANAGEMENT CONSULTATION Name: ADRIANNA COTTRELL Room #: REG [facility] M..#: [id number] Admission: 06/18/18 Attend Phys: Sherri Medina Discharge: Date of : 85 Report #: [id number] noted and the treatment plan was reviewed with the patient. All current medications, both prescribed and OTC were reviewed and reconciled on the electronic medical record. Tobacco screening was accomplished and smoking cessation was advised when indicated. BMI was noted and diet/exercise modification was recommended for all patients following outside normal parameters. I reviewed with the patient today their responsibilities to safeguard prescription medications, reviewed their responsibility to utilize medications only as prescribed by the physician. They are to seek and receive pain medications only from 1 physician group ( [facility]). They are to use 1 pharmacy and keep the clinic informed if they change pharmacies. Their responsibilities include making followup visits in a timely fashion and to avoid abrupt discontinuation of medication usage. Their responsibilities further include bringing their medications (bottles from the pharmacy with residual pills) to the visit for possible confirmation of pill counts and the patient understands it is their responsibility to submit to random drug screens to ensure both that the medications prescribed are present, and that no other controlled substances are present. All prescriptions provided today were generated electronically. PLAN: 1. Today, we discussed treatment options with the patient. At this time, it is decided to continue with her Percocet 10/325 five times a day. The patient feels that this is much more beneficial than the oxycodone immediate release that she was taking. The patient given a script for 150 to be released today, again in 4 weeks and in 8 week of this medication. 2. Tramadol 50 mg 2 tablets at bedtime, quantity 60 with 2 refills was given. This was started by her primary care doctor in May, Dr. Hutson and who had called and discussed it with Dr. Goins. We elected to start prescribing this medicine. I did discuss serotonin syndrome with the patient due to the fact that she is on antidepressant also, but the patient is on a low dose and pharmacy will keep an eye on this too. 3. Prescription Lyrica 150, #90 with 2 additional refills were given. 4. MEDICATIONS: Xanax 1 mg 3 times a day, #90 with 2 additional refills; amitriptyline 150 mg, #30 with 2 refills were given; baclofen 10 mg t.i.d., #90 with 2 refills; Zofran 4 mg 1 p.o. q.8h. p.r.n., #15 with 2 refills; tizanidine 4 mg t.i.d., #90 with 2 refills were given. 5. The patient will be followed up in 3 months due to her distance she comes from [place] to see our pain clinic. The patient is agreeable with this plan of care. The patient seen in collaboration today with Dr. Jatinder Goins. <ELECTRONICALLY SIGNED> By: Sherri Medina 06/19/18 0723 [id number] Sherri Medina /eran
[2018-06-18 10:50] VITALS: BP 119/80
== END ==
LOC: PAIN 07:23
DX: G89.4 Chronic pain syndrome (principal); F32.9 Major depressive disorder, single episode, unspecified; G90.50 Complex regional pain syndrome I, unspecified

== ENCOUNTER → 2018-09-10 | Outpatient (CLI) | payer BC, OTHER ==
[~2018-09-10] VITALS: Ht 167.6 cm; Wt 100.8 kg
[2018-09-10 09:40] VITALS: BP 120/92
--- NOTE | 2018-09-10 10:01 | NUR ---
Pain Clinic Assessment: 1. History of Osteoarthritis: Not Applicable History of Rheumatoid Arthritis: Not Applicable 2. Height: 5 ft. 6 in. 167.6 cm. Weight: 222.2 lb. oz. 100.789 kg. Patient's BMI: 35.9 3. Vital Signs: BP: 120/92 Pulse: 120 Resp: 16 Temp: 02 Sat: 100 ECG Mon: 4. Pain Intensity: 10 TODAY 5. Fall Risk: Dizziness: Y Needs help standing or walking: Y Fallen in the last 3 months: Y Fall risk comments: 6. Patient on Blood Thinner: None 7. History of Hypertension: N 8. Opioid Therapy greater than 6 weeks: Y Opiate Contract Signed: 05/11/16 9. Risk Assessment Tool Provided: LOW RISK 08/07 10. Functional Assessment Tool: 58/ 11. Recreational Drug Use: Never Drug Type: Tobacco Use: Current Every Day Smoker Tobacco Type: Amount or Packs/day: How Many Years: Alcohol Use: No Frequency: Quant:
--- NOTE | 2018-09-11 09:45 | HPC ---
[facility] [address] [place] [address] PAIN MANAGEMENT CONSULTATION Name: ADRIANNA COTTRELL Room #: REG KYLE Cristiane#: [id number] Admission: 09/10/18 Attend Phys: Sherri Medina Discharge: Date of : 85 Report #: [id number] THIS REPORT FOR: //name// CC: Sherri Bedoya MD Physician staff DATE OF SERVICE: 09/10/2018 CHIEF COMPLAINT: Complex regional pain syndrome involving her right lower extremity. HISTORY OF PRESENT ILLNESS: The patient returns to the pain clinic today for followup for her medication used to treat her complex regional pain syndrome in her right lower extremity. She tells me that overall her pain score is 10 today. It is significantly worse with cold weather. She lives in [place] currently and last week with significant cold there, she had to take 6 tablets of her pain pills a day. She said normally she does take only 5 a day, that it was so bad due to the cold she did increase it, but she was aware that she would have to decrease her medicines on another day. The patient tells me otherwise she had been doing fairly well. She describes an invention that her sons have made for her regarding a skateboard, a type of brace that she uses to put on her leg to get around the house instead of using her crutches, is very ingenious of her son, but I did warn her not to fall using the skateboard apparatus that they have made. The patient tells me that it is easier to get around in the house with this. The patient would like a refill of all of her medications today. ALLERGIES: LATEX, ADHESIVE TAPE, CLONIDINE, AND METHADONE. CURRENT LIST OF MEDICATIONS: Tramadol 50 mg 2 tablets at bedtime, Zanaflex 4 mg 3 times a day, Lyrica 150 mg 3 times a day, oxycodone 10/325 up to 5 times a day, Zofran 4 mg every 8 hours as needed, baclofen 10 mg 3 times a day, amitriptyline 150 mg at bedtime, Xanax 1 mg up to 3 times a day, phentermine 37.5, Abilify 2 mg daily, estradiol daily, Cymbalta 60 mg daily and metformin 1000 mg b.i.d. PQRS: 1. She is not being treated for osteoarthritis but has some arthritic changes in her right ankle. She does not have rheumatoid arthritis. 2. Height is 5 feet 6 inches, weight is 222 and BMI is 35.9. 3. Vital signs 120/92, pulse is 120, respirations 16 and oxygen sat 100. 4. Pain score is 10/10 today. 5. Fall risk. Does complain of some dizziness. Does need help walking and has fallen in the last [address] [address] PAIN MANAGEMENT CONSULTATION Name: ADRIANNA COTTRELL Room #: REG KYLE Sauer#: [id number] Admission: 09/10/18 Attend Phys: Sherri Medina Discharge: Date of : 85 Report #: [id number] 6. The patient is not on a blood thinner. She does not take any antihypertensive medicines. 7. Opioid therapy is greater than 6 weeks; therefore, an opioid signed contract is on the chart. 8. Risk assessment tool is low. Her functional assessment is 58/70. 9. Recreational drug use, she denies. She does smoke currently every day and she does not drink alcohol. We did check the prescription monitoring system. The patient is filling appropriately with her medications that have been prescribed by Dr. Goins. She tells me that she does safeguard her medications. PHYSICAL EXAMINATION: GENERAL: This is a well-developed, well-nourished white female who appears her stated age. She is alert and orientated. Affect is appropriate. HEENT: Normocephalic and atraumatic. Extraocular eye muscles are intact. Sclerae are not icteric. Mucous membranes are moist. MUSCULOSKELETAL: Without significant scoliosis, kyphosis or lordosis. Pain is present in her right ankle, right lower extremity. Slightly discoloration of her foot is noted, very sensitive to touch and she does have allodynia present. She continues to tell me that her foot is cold. She has her crutches present to help with ambulation today. IMPRESSION: 1. Complex regional pain syndrome involving her right foot. 2. Inability to work secondary to chronic pain. 3. Complex medical management secondary to reflex sympathetic dystrophy. 4. 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 We reviewed the fact that opiate medications are being used to provide analgesia adequate to support activities of daily living, not attempting to achieve a specific pain score on the 0-10 Visual Analog Scale. The current opiate medications are providing sufficient analgesia to allow the patient to participate in activities of daily living. The patient is not exhibiting any aberrant behavior suggestive of drug diversion. The patient is not having any adverse reactions to medications. The patient is not suffering from daytime somnolence or mental acuity changes. The patient is managing opiate-induced constipation with appropriate txwz-afr-brkfdam agents and dietary considerations. The patient was counseled on concern for caution with operating a motor vehicle while using opiate medications. A physical exam was performed and the patient's functional status was evaluated. All patients with back pain were advised against the bed rest greater than 4 days and were advised to return to normal activities. Pain score assessment was noted and the treatment plan was reviewed with the patient. All current medications, both prescribed and OTC were reviewed and reconciled on the electronic medical record. Tobacco screening was accomplished and smoking cessation was advised when indicated. BMI was noted and diet/exercise [facility] [address] [place] [address] PAIN MANAGEMENT CONSULTATION Name: ADRIANNA COTTRELL Room #: REG KYLE Amaro.Marilyn.#: [id number] Admission: 09/10/18 Attend Phys: Sherri Medina Discharge: Date of : 85 Report #: [id number] modification was recommended for all patients following outside normal parameters. I reviewed with the patient today their responsibilities to safeguard prescription medications, reviewed their responsibility to utilize medications only as prescribed by the physician. They are to seek and receive pain medications only from 1 physician group ( [facility]). They are to use 1 pharmacy and keep the clinic informed if they change pharmacies. Their responsibilities include making followup visits in a timely fashion and to avoid abrupt discontinuation of medication usage. Their responsibilities further include bringing their medications (bottles from the pharmacy with residual pills) to the visit for possible confirmation of pill counts and the patient understands it is their responsibility to submit to random drug screens to ensure both that the medications prescribed are present, and that no other controlled substances are present. All prescriptions provided today were generated electronically. PLAN: 1. We discussed treatment options with this patient today. At this time, it was decided to continue all of her current medications. Scripts given for the following: I. Tramadol 50 mg, take two at bedtime, #60 with 2 refills. II. Lyrica 150 mg t.i.d., #90 with 2 refills. III. Alprazolam 1 mg t.i.d., #90 with 2 additional refills. IV. Elavil 150 mg at bedtime, quantity 30 with 2 additional refills. V. Baclofen 10 mg t.i.d., #90 with 2 additional refills. . Zofran 4 mg q. 8 hours, #15 with 2 additional refills. VII. Tizanidine 4 mg t.i.d., #90 with 2 refills. VIII. Oxycodone 10/325, five tablets a day, quantity 150 to release today and in 4 weeks and in 8 weeks. 2. We discussed the patient's care, possibly being taken over by Dr. Martinez who has been seeing her as a primary care doctor closer to home. The patient drives about 3 hours to get to our clinic. Dr. Goins has talked with him in the past. I believe it is reasonable for him to continue writing these medications for her if he is agreeable, I will call his office and talk to a staff member today. The patient can continue to see us either on a yearly basis or as the doctor there seems to have questions arise. The patient is agreeable with this. She said it would be significantly closer for her and she trusts him like she trusts Dr. Goins. 3. The patient will be seen in 3 months here again if that doctor is not [address] [address] PAIN MANAGEMENT CONSULTATION Name: SAVANACatherineADRIANNA Room #: TANNER Sauer#: [id number] Admission: 09/10/18 Attend Phys: Sherri Medina Discharge: Date of : 85 Report #: [id number] willing to take over all of her medications. She is agreeable with this plan of care. This patient is seen today in collaboration with Dr. Jatinder Goins. <ELECTRONICALLY SIGNED> By: Sherri Medina 09/11/18 0945 [id number] 2034 Sherri Medina /eran
== END ==
LOC: PAIN 07:26
DX: G90.521 Complex regional pain syndrome I of right lower limb (principal); F32.9 Major depressive disorder, single episode, unspecified; Z79.899 Other long term (current) drug therapy